=== PATIENT | female | born 1955 | race Caucasian/White ===

== ENCOUNTER 2019-09-14 12:49 | Emergency (ER) | payer MEDICARE, BC, SELFPAY ==
[2019-09-14 13:25] VITALS: BP 124/83; PULSE 64; RESP 18; TEMP 37.6; O2SAT 96
--- NOTE | 2019-09-14 13:29 | ED.SKABFB ---
HPI - Skin/Abscess/Foreign Bdy General Chief complaint: Skin/Abscess/Foreign Body Stated complaint: pos cellulititis right toe Time Seen by Provider: 09/14/19 13:29 Source: patient and RN notes reviewed History of Present Illness HPI narrative: Patient is 63-year-old female that presents the urgent care with complaints of possible cellulitis to the third toe on the right foot. Patient states that she started to see some redness on Monday and noticed increased pain as of yesterday. Patient denies any known trauma or injury. Denies any increase in the redness. Denies any known swelling. Denies of any fever. No other acute complaints. Has not used anything [id number]. No acute distress noted. Patient read the plan of care. Related Data Home Medications Medication Instructions Recorded Confirmed levothyroxine [Synthroid] 09/14/19 nebivolol [Bystolic] mg 09/14/19 pravastatin 09/14/19 Allergies Allergy/AdvReac Type Severity Reaction Status Date / Time No Known Allergies Allergy Verified 09/14/19 13:14 Review of Systems Review of Systems: Narrative: CONSTITUTIONAL: Denies fever, chills, or sweats. EYES: Denies visual changes, redness, or discharge. ENT: Denies rhinorrhea, congestion, sore throat, or otalgia. CARDIOVASCULAR: Denies chest pain, palpitations, or edema. RESPIRATORY: Denies cough or dyspnea. GASTROINTESTINAL: Denies abdominal pain, nausea, vomiting, or diarrhea. GENITOURINARY: Denies dysuria or hematuria. SKIN: Denies rash or itching. MUSCULOSKELETAL: Reports of redness swelling and pain to right third toe NEUROLOGIC: Denies headache, numbness, or weakness. All other systems reviewed are negative, except as documented in HPI. PMFSH Comments At the time of my signature, I reviewed and agree with the nursing past medical, surgical, social, and family history. There is no relevant family history pertinent to the patient complaint. Exam Narrative: Exam Narrative: GENERAL: This is a well-nourished, well-developed patient, in no apparent distress. HEAD: normocephalic, atraumatic. EYES: PERRL. Sclera clear/white. Vision is grossly intact. EARS: External ears normal NOSE: External nose normal with no obvious nasal discharge THROAT: Mucous membranes moist NECK: Neck supple NEURO: awake, alert, and oriented to person, place and time. There were no obvious focal neurologic abnormalities. EXTREMITIES: Mild erythema without noticeable edema to the right third toe. Erythema noted at the base of the nailbed with mild pain. Capillary refill less than 2 seconds to right lower extremity with positive strong pedal pulse. BACK: Nontender without deformity or crepitance. No flank tenderness. Course Vital Signs Vital signs: Vital Signs Temperature 99.6 F 09/14/19 13:25 Pulse Rate 64 09/14/19 13:25 Respiratory Rate 18 09/14/19 13:25 Blood Pressure 124/83 09/14/19 13:25 Pulse Oximetry 96 09/14/19 13:25 Temperature 99.6 F 09/14/19 13:25 Pulse Rate 64 09/14/19 13:25 Respiratory Rate 18 09/14/19 13:25 Blood Pressure 124/83 09/14/19 13:25 Pulse Oximetry 96 09/14/19 13:25 Reviewed MDM - Skin/Abscess/Foreign Bdy MDM Narrative Medical decision making narrative: Advised the patient to avoid wearing tight occlusive socks and shoes. Keep the area open to air as much as possible. Avoid cutting the toenails or trying to do the toes until pain and redness resolved. May use Tylenol/ibuprofen as needed for pain. Soak the right foot and plain Dial soap and warm water twice a day. Be aware of signs and symptoms of worsening infection such as increased swelling, pain, streaking up the toes/foot, fever. If any of the above symptoms occur or redness does not subside within 24 to 48 hours, start oral antibiotic regimen as prescribed. Make sure to eat and drink with the medication. Follow-up with PCP within 2 to 5 days or for worsening symptoms or failure to improve. Differential Diagnosis
== END 2019-09-14 13:53 | disposition home or self-care (01) ==
PROVIDERS: Emergency Provider Nurse Practitioner Family
DX: M79.671 Pain in right foot (principal); I10 Essential (primary) hypertension; E78.00 Pure hypercholesterolemia, unspecified; E03.9 Hypothyroidism, unspecified
CPT/HCPCS: 99213; G0463

== ENCOUNTER 2021-01-01 13:41 | Emergency (ER) | payer MEDICARE, BC, SELFPAY ==
[2021-01-01 13:52] VITALS: BP 143/94; PULSE 67; RESP 16; TEMP 37; O2SAT 98
--- NOTE | 2021-01-01 14:10 | ED.SKABFB ---
HPI - Skin/Abscess/Foreign Bdy General Chief complaint: Skin/Abscess/Foreign Body Stated complaint: CELLULITIS Time Seen by Provider: 01/01/21 14:10 Source: patient and RN notes reviewed Mode of arrival: ambulatory Limitations: no limitations History of Present Illness HPI narrative: 65-year-old female presents to the [facility] with redness to the right elbow. Patient has some mild redness around the area and she received her Pneumovax vaccine a couple of days ago. Now has redness to the posterior right elbow. Had called her primary care provider who called her Related Data Home Medications Medication Instructions Recorded Confirmed levothyroxine [Synthroid] 75 mcg PO DAILY 09/14/19 01/01/21 nebivolol [Bystolic] 10 mg PO DAILY 09/14/19 01/01/21 pravastatin 40 mg PO DAILY 09/14/19 01/01/21 Allergies Allergy/AdvReac Type Severity Reaction Status Date / Time No Known Allergies Allergy Verified 01/01/21 13:58 Review of Systems Review of Systems: All systems reviewed & are unremarkable except as noted in HPI and below Constitutional: Constitutional: Reports no additional constitutional complaints, Denies chills and Denies fever(s) Eyes: Eyes: Reports no additional eye complaints ENT: Reports system reviewed and no additional complaints, except as documented Cardiovascular: Cardiovascular: Reports no additional cardiovascular complaints Respiratory: Respiratory: Reports no additional respiratory complaints Musculoskeletal: Musculoskeletal: Reports as per HPI, Denies arthralgias and Denies joint swelling Integumentary/Breasts: Skin/Breast: Reports as per HPI and Reports erythema (Right posterior elbow) Neurologic: Reports system reviewed and no additional complaints, except as documented Psychiatric: Psychiatric: Reports no additional psychiatric complaints Endocrine: Endocrine: Reports no additional endocrine complaints PMFSH Past Medical History Medical History (Updated 01/03/21 @ 11:48 by Verito Sawant) High cholesterol Thyroid disease Comments At the time of my signature, I reviewed and agree with the nursing past medical, surgical, social, and family history. There is no relevant family history pertinent to the patient complaint. Exam Const: General: healthy appearing, no acute distress and alert Nutritional Appearance: well nourished Orientation/consciousness: patient oriented x3 Limitations: no limitations HENMT: Head: normal to inspection Ears: external ears normal Eyes: Conjunctivae: conjunctivae normal Pupils: Equal, round and reactive pupils present Neck: Neck: normal visual inspection, no lymphadenopathy and no meningeal signs Chest: Chest palpation & inspection: normal inspection of the chest Resp: Effort & Inspection: normal respiratory effort Auscultation: clear to auscultation bilaterally Cardio: Rate: regular rate Rhythm: regular rhythm Back/Spine/Pelvis: Back: no CVA tenderness Skin: Rashes: no rashes Wounds: no wounds Other: Red, mild swelling and warmth posterior right elbow Neuro: General: patient oriented x3, moves all extremities, no meningeal signs and no focal motor deficits Cranial nerves: Yes Nystagmus not present Speech: normal speech Gait exam (Neuro): Normal gait present Extrem: General: normal to inspection Right upper extremity: elbow/forearm swelling (Mild), normal ROM and warmth; no tenderness, no ecchymosis and no deformity Psych: Appearance: grossly normal and well kempt Mental Status: mental status grossly normal Affect: normal affect Attitude: cooperative Thought content: Yes Normal thought content present Course Course Emergency Course: Discharge instructions reviewed with patient, as well as provided in writing per nursing staff. The instructions also include specific and strict return/GO TO THE ER as well as f/u information. All questions have been answered, and the patient deny any further questions with discharge and discharge tripp
== END 2021-01-01 14:24 | disposition home or self-care (01) ==
PROVIDERS: Emergency Provider Nurse Practitioner; PCP Internal Medicine
DX: L03.113 Cellulitis of right upper limb (principal); E78.00 Pure hypercholesterolemia, unspecified; E03.9 Hypothyroidism, unspecified
CPT/HCPCS: 99213; G0463

== ENCOUNTER 2021-12-24 16:20 | Emergency (ER) | payer MEDICARE, BC, SELFPAY ==
--- NOTE | 2021-12-24 16:23 | ED.URI ---
HPI - URI/Sore Throat General Chief Complaint: Upper Respiratory Infection Stated Complaint: headache,sore throat, ear pain Time Seen by Provider: 12/24/21 16:23 Source: patient Mode of arrival: ambulatory Limitations: no limitations History of Present Illness HPI Narrative: Ms. Rowan is a 66-year-old female patient presenting to the clinic today with complaints of headache, sore throat, and ear pain x3 days. She reports she started to have runny nose and cough today. Has felt feverish with chills however she does not know how high her temperature has been. No known exposure to anybody with COVID, flu, or strep but she has been in and out of the hospital seeing family members. MD elicited complaint: sore throat and nasal congestion Related Data Home Medications Medication Instructions Recorded Confirmed levothyroxine 75 mcg tablet 75 mcg PO DAILY 09/14/19 12/24/21 (Synthroid) nebivolol 10 mg tablet (Bystolic) 10 mg PO DAILY 09/14/19 12/24/21 pravastatin 40 mg tablet 40 mg PO DAILY 09/14/19 12/24/21 Allergies Allergy/AdvReac Type Severity Reaction Status Date / Time clindamycin Allergy Nausea and Verified 12/24/21 16:32 Vomiting Review of Systems Review of Systems: Pertinent positives per HPI. Patient denies any rash, headache, visual changes, dizziness, shortness of breath, chest pain, palpitations, nausea, vomiting, diarrhea, constipation, abdominal pain, or any urinary issues. [facility] Past Medical History Medical History High cholesterol Thyroid disease Comments At the time of my signature, I reviewed and agree with the nursing past medical, surgical, social, and family history. There is no relevant family history pertinent to the patient complaint. Exam Narrative: General: Well-developed, well nourished, in no apparent distress Head: Normocephalic, atraumatic Eyes: Pupils equally round and reactive to light bilaterally, EOM intact, sclera and conjunctive clear, no discharge, lids normal Ears: TMs intact, dull, congestion, ear canals clear, no drainage, grossly hearing normal. Nose: Nares patent, clear nasal discharge,mild inflammation, no sinus tenderness. Mouth: Oropharynx without lesions or masses, good dentition, MMM. States that he is PND, oropharynx mildly red Neck: Supple, trachea midline, no enlargement of anterior or posterior cervical nodes, no thyroid masses or goiter palpable. Cardio: Regular rate and rhythm, s1 and s2 normal, no murmur appreciated. Resp: Clear to auscultation bilaterally anteriorly and posteriorly, no rhonchi, rales, wheezing or rubs Course Course Emergency Course: Portions of this record may have been created with voice recognition software. Level of Care: Express Care Visit Vital Signs Vital signs: Vital signs reviewed MDM - URI/Sore Throat MDM Narrative Medical decision making narrative: At the time of visit patient was resting comfortably on exam table. COVID test positive and strep testing negative in the clinic. I will send in a prescription for some Paxlovid to her pharmacy. Supportive measures were discussed with the patient and she voiced understanding of discharge instructions and agrees to treatment plan. Differential Diagnosis Differential diagnosis: Likely upper respiratory infection, otitis media, sinusitis, viral infection, bronchitis, influenza, pharyngitis and other (Covid) Discharge Plan Discharge Clinical Impression: COVID-19 Patient Disposition: Home, Self-Care Condition: Stable Instructions: Antibiotic Form, How To Wash Your Hands (ED), Droplet Precautions (ED), COVID-19 (Coronavirus Disease 2019) (ED), COVID-19: Slow the Coronavirus Spread (ED), How to Recover from COVID-19 at Home (ED) Additional Instructions: Discussed patient's elevated blood pressure at the time of visit and recommend follow-up with primary care physician to have this reevaluated within t
[2021-12-24 16:37] VITALS: BP 174/121; PULSE 76; RESP 16; TEMP 37.3; O2SAT 97
== END 2021-12-24 16:51 | disposition home or self-care (01) ==
PROVIDERS: Emergency Provider Nurse Practitioner Family; PCP Internal Medicine
DX: U07.1 COVID-19 (principal); E78.00 Pure hypercholesterolemia, unspecified; E03.9 Hypothyroidism, unspecified; I10 Essential (primary) hypertension
CPT/HCPCS: 87081; 87426; 87880; 99213; C9803; G0463

== ENCOUNTER 2022-03-19 18:28 | Emergency (ER) | payer MEDICARE, BC, SELFPAY ==
[2022-03-19 19:02] VITALS: BP 156/91; PULSE 75; RESP 16; TEMP 37.4; O2SAT 98
--- NOTE | 2022-03-19 19:04 | ED.BURNSMOKE ---
HPI - Burn/Smoke Inhalation General Chief complaint: Extremity Problem,Nontraumatic Stated complaint: left arm swelling/redness Related Data Home Medications Medication Instructions Recorded Confirmed levothyroxine 75 mcg tablet 75 mcg PO DAILY 09/14/19 12/24/21 (Synthroid) nebivolol 10 mg tablet (Bystolic) 10 mg PO DAILY 09/14/19 12/24/21 pravastatin 40 mg tablet 40 mg PO DAILY 09/14/19 12/24/21 Allergies Allergy/AdvReac Type Severity Reaction Status Date / Time clindamycin Allergy Nausea and Verified 12/24/21 16:32 Vomiting PMFSH Past Medical History Medical History High cholesterol Thyroid disease Course Vital Signs Vital signs: Vital Signs Temperature 99.3 F 03/19/22 19:02 Pulse Rate 75 03/19/22 19:02 Respiratory Rate 16 03/19/22 19:02 Blood Pressure 156/91 H 03/19/22 19:02 Pulse Oximetry 98 03/19/22 19:02 Oxygen Delivery Room Air 03/19/22 19:02 Temperature 99.3 F 03/19/22 19:02 Pulse Rate 75 03/19/22 19:02 Respiratory Rate 16 03/19/22 19:02 Blood Pressure 156/91 H 03/19/22 19:02 Pulse Oximetry 98 03/19/22 19:02 Oxygen Delivery Room Air 03/19/22 19:02 Discharge Plan Discharge Prescriptions: No Action Paxlovid (EUA) 300 mg (150 mg x 2)-100 mg tablets,dose pack See Rx Instructions .ROUTE .COMPLEX Qty: 30 0RF Rx Instructions: take TWO 150 mg tablets of nirmatrelvir with ONE 100 mg tablet of ritonavir twice daily for 5 days pravastatin 40 mg tablet 40 mg PO DAILY levothyroxine [Synthroid] 75 mcg tablet 75 mcg PO DAILY nebivolol [Bystolic] 10 mg tablet 10 mg PO DAILY Follow-up/Referrals: Manuel,Rebeka Arechiga MD [Primary Care Provider] -
--- NOTE | 2022-03-19 20:18 | ED.SKABFB ---
HPI - Skin/Abscess/Foreign Bdy General Chief complaint: Extremity Problem,Nontraumatic Stated complaint: left arm swelling/redness Time Seen by Provider: 03/19/22 19:40 Source: patient and RN notes reviewed Mode of arrival: ambulatory Limitations: dementia History of Present Illness HPI narrative: 66-year-old female presents concern for red, painful, tender, swollen, warm area to the left upper arm. Reports that she received for pneumonia vaccine on , and the arm was painful on . She reports since then it has become red, tender, hard, increased pain. She denies fever, body aches, chills, sweats. Denies any drainage from the area. MD complaint: other (Redness) Related Data Home Medications Medication Instructions Recorded Confirmed levothyroxine 75 mcg tablet 75 mcg PO DAILY 09/14/19 03/19/22 (Synthroid) nebivolol 10 mg tablet (Bystolic) 10 mg PO DAILY 09/14/19 03/19/22 pravastatin 40 mg tablet 40 mg PO DAILY 09/14/19 03/19/22 omeprazole 40 mg-sodium 1 cap PO DAILY 03/19/22 03/19/22 bicarbonate 1.1 gram capsule Allergies Allergy/AdvReac Type Severity Reaction Status Date / Time clindamycin Allergy Intermediate Nausea and Verified 03/19/22 19:19 Vomiting Review of Systems Review of Systems: CONSTITUTIONAL: Denies malaise, chills, sweats, or fever. EYES: Denies redness, or discharge. ENT: Denies rhinorrhea, congestion, swollen lips, swollen tongue CARDIOVASCULAR: Denies chest pain, palpitations, or edema. RESPIRATORY: Denies cough or dyspnea. GASTROINTESTINAL: Denies abdominal pain, nausea, vomiting SKIN: Reports redness, swelling, tenderness, warmth of the left upper arm. Denies purulent drainage, vesicles, bullae, numbness, pain beyond proportion MUSCULOSKELETAL: Denies joint pain or myalgia. NEUROLOGIC: Denies headache. All systems reviewed & are unremarkable except as noted in HPI and below PMFSH Past Medical History Medical History High cholesterol Thyroid disease Comments At time of signature, agree with nursing past medical, surgical, social and family history. There is no relevant family history pertinent to the presenting complaint Exam Narrative: GENERAL: Well-appearing, well-nourished, and in no acute distress. HEAD: Normocephalic, atraumatic. EYES: PERRLA, conjunctivae clear ENT: Mucous membranes moist. NECK: Supple. No lymphadenopathy CHEST: Clear to auscultation. No respiratory distress. HEART: Regular rate and rhythm. SKIN: Warm, dry. Erythema, induration, tenderness, warmth with sharp margins noted left upper. No vesicles, bullae, necrosis, ecchymosis, crepitus noted. NEURO: Alert and oriented x3. PSYCH: Normal mood and affect Course Course Emergency Course: Patient is aware of diagnosis, understands and agrees to treatment plan. Anticipatory guidance given. Patient agrees to follow-up as directed and is aware of reasons to seek care at the emergency department. Portions of this record may have been created with voice recognition software Level of Care: Express Care Visit Vital Signs Vital signs: Vital Signs Temperature 99.3 F 03/19/22 19:02 Pulse Rate 75 03/19/22 19:02 Respiratory Rate 16 03/19/22 19:02 Blood Pressure 156/91 H 03/19/22 19:02 Pulse Oximetry 98 03/19/22 19:02 Oxygen Delivery Room Air 03/19/22 19:02 Temperature 99.3 F 03/19/22 19:02 Pulse Rate 75 03/19/22 19:02 Respiratory Rate 16 03/19/22 19:02 Blood Pressure 156/91 H 03/19/22 19:02 Pulse Oximetry 98 03/19/22 19:02 Oxygen Delivery Room Air 03/19/22 19:02 Reviewed. MDM - Skin/Abscess/Foreign Bdy MDM Narrative Medical decision making narrative: Does not appear at this time to be erythema multiforme, bullous, SJS, TEN; no evidence at this time to suggest RMSF, NSTI, endocarditis or Lyme disease; patient looks well, nontoxic and is tolerating oral intake; no neurologic signs or sy
== END 2022-03-19 20:12 | disposition home or self-care (01) ==
PROVIDERS: Emergency Provider Nurse Practitioner; PCP Internal Medicine
DX: L03.114 Cellulitis of left upper limb (principal); E78.00 Pure hypercholesterolemia, unspecified; E03.9 Hypothyroidism, unspecified; I10 Essential (primary) hypertension
CPT/HCPCS: 99213; G0463